=== PATIENT | male | born 1990 | race Caucasian/White ===

== ENCOUNTER 2020-07-02 08:09 | Outpatient (REF) | payer MEDICAID, SELFPAY ==
--- NOTE | ~2020-07-02 | MR_ITS ---
EXAMINATION: MR ANKLE WITHOUT CONTRAST, RIGHT CLINICAL INFORMATION: Right ankle pain. Injury 05/25/2020. Persistent pain and swelling. Popping/clicking. COMPARISON: None TECHNIQUE: Multiplanar MR imaging was obtained through the right ankle without contrast on a 1.5 Corinna magnet. FINDINGS: ACHILLES TENDON: Normal. OTHER TENDONS: There is minimal peroneus brevis tendinosis at the level of the lateral malleolus. No tears. There is also [id number] peroneus longus tendinosis at the level of the anterior process of the calcaneus. No tenosynovitis. Extensor and medial flexor tendons are normal. LIGAMENTS: Anterior talofibular ligament is edematous and ill-defined at its talar attachment, most consistent with a sprain/partial tear. The calcaneofibular ligament is also edematous and thickened, consistent with a sprain. Posterior talofibular ligament is intact. The distal tibiofibular ligaments are normal. The deltoid ligament is edematous and ill-defined at both the deep anterior and deep posterior fibers, most consistent with a sprain/partial tear. Superficial fibers remain intact and are normal in appearance. BONE AND ARTICULAR CARTILAGE: There is marrow edema signal at the medial margin of the talus and at the tip of the medial malleolus, most consistent with osseous contusions or avulsive changes related to the adjacent deltoid ligament injury. No talar osteochondral injuries. Subtalar and talocrural joints appear well preserved. Chopart joint and the remainder of the midfoot are unremarkable. JOINT FLUID AND SOFT TISSUES: Trace ankle joint effusion. There is mild subcutaneous edema signal around the ankle. Of incidental note, there is a prominent origin of the quadratus plantae muscle along the proximal/medial margin of the calcaneal tuberosity. Intrinsic foot musculature is otherwise unremarkable. PLANTAR FASCIA: Normal. SINUS TARSI AND TARSAL TUNNEL: Normal. MR/MR ankle RT wo con IMPRESSION: 1. Sprain/mild partial tear of the anterior talofibular ligament and deep fibers of the deltoid ligament. A more mild sprain of the calcaneofibular ligament. Ankle mortise remains symmetric. 2. Marrow edema signal at the medial margin of the talar dome and at the medial malleolus, to a lesser extent, most likely due to osseous contusions and/or avulsive changes related to the deltoid ligament injury. No discrete fractures. 3. [id number] peroneus longus tendinosis at the level of the anterior process of the calcaneus. More mild minimal peroneus brevis tendinosis. No tears.
== END 2020-07-02 08:10 | disposition home or self-care (01) ==
LOC: HO.MRI 08:09
PROVIDERS: Visit Provider Internal Medicine
DX: M25.571 Pain in right ankle and joints of right foot (principal)
CPT/HCPCS: 73721

== ENCOUNTER 2020-07-15 10:57 | Outpatient (REF) | payer MEDICAID, SELFPAY ==
--- NOTE | ~2020-07-15 | XR_ITS ---
EXAMINATION: XR ANKLE, RIGHT CLINICAL INFORMATION: Pain right ankle and foot COMPARISON: MRI right ankle 07/02/2020 TECHNIQUE: AP, lateral, and mortise views of the right ankle. FINDINGS: There is no fracture, dislocation, or destructive process. No joint narrowing or erosive change. The subtalar joint is unremarkable. Ankle mortise is symmetric. The malleoli are intact. Normal bony mineralization. The retrocalcaneal recess is preserved. There is a borderline posterior calcaneal spur. XR/XR ankle RT min 3V IMPRESSION: Borderline posterior calcaneal spur.
== END 2020-07-15 10:58 | disposition home or self-care (01) ==
LOC: HO.HOSX 10:57
PROVIDERS: Visit Provider Physician Assistant
DX: S93.491A Sprain of other ligament of right ankle, initial encounter (principal)
CPT/HCPCS: 73610

== ENCOUNTER 2020-08-12 08:11 | Outpatient (REF) | payer MEDICAID, SELFPAY ==
--- NOTE | ~2020-08-12 | US_ITS ---
EXAMINATION: US ABDOMEN COMPLETE CLINICAL INFORMATION: Elevated AST/ALT. COMPARISON: None TECHNIQUE: Real-time imaging of the abdominal viscera. FINDINGS: PANCREAS: Normal. ABDOMINAL AORTA: The proximal, mid, and distal segments are normal in caliber. INFERIOR VENA CAVA: Visualized portions are normal. LIVER: Liver echotexture is increased probably representing fatty infiltration. There is a hypoechoic area adjacent to the gallbladder, characteristic location of focal fatty sparing. The liver is normal in size. The liver contour is normal. No focal hepatic lesion. There is no intrahepatic biliary duct dilatation seen. GALLBLADDER: Normal. The gallbladder is physiologically distended without evidence of stones, sludge, polyps, wall thickening or pericholecystic fluid. COMMON BILE DUCT: Normal in caliber measuring 0.4 cm in diameter. RIGHT KIDNEY: Normal. No hydronephrosis. No renal calculi or focal parenchymal lesions. The kidney measures 11.7 cm in maximum dimension. LEFT KIDNEY: Normal. No hydronephrosis. No renal calculi or focal parenchymal lesions. The kidney measures 11.9 cm in maximum dimension. SPLEEN: Normal. The spleen measures 11.6 cm in maximum dimension. FREE FLUID: None. US/US abdomen complete IMPRESSION: Fatty liver otherwise unremarkable exam.
== END 2020-08-12 08:12 | disposition home or self-care (01) ==
LOC: HO.US 08:11
PROVIDERS: PCP Internal Medicine; Visit Provider Internal Medicine
DX: R74.01 Elevation of levels of liver transaminase levels (principal); R79.89 Other specified abnormal findings of blood chemistry
CPT/HCPCS: 76700

== ENCOUNTER → 2020-08-18 08:51 | Outpatient (BNVA) | payer MEDICAID, SELFPAY | PROVIDERS: PCP Internal Medicine; Visit Provider Internal Medicine Gastroenterology | DX: R79.89 Other specified abnormal findings of blood chemistry (principal); R63.5 Abnormal weight gain; R53.83 Other fatigue | CPT/HCPCS: 99202 ==

== ENCOUNTER 2020-08-19 08:15 | Outpatient (REF) | payer MEDICAID, SELFPAY ==
[2020-08-19 09:03] LABS: MANUAL DIFF FLAG NO
[2020-08-19 09:06] LABS: Basophils Percent Auto 0.2 % (0-2); Eosinophils Percent Auto 0.6 % (0-4); Hematocrit 41.4 % (42-52); Hemoglobin 14.2 g/dl (14.0-18.0); Imm Gran Abs Auto 0.03 X10*3/uL (0.00-0.03); Imm Gran Pct Auto 0.5 % (0.0-0.4); Lymphocytes Absolute Auto 2.9 X10*3/uL (1.2-4.9); Lymphocytes Percent Auto 44.6 % (20-40); Mean Corpuscular HGB Conc 34.3 g/dl (31.0-36.0); Mean Corpuscular Hemoglobin 35.4 pg (27.0-33.0); Mean Corpuscular Volume 103.2 fL (80-98); Mean Platelet Volume 12.5 fL (9.4-12.4); Monocytes Absolute Auto 0.6 X10*3/uL (0.1-1.2); Monocytes Percent Auto 8.5 % (2-11); Neutrophils Percent Auto 45.6 % (45-73); Red Blood Count 4.01 X10*6/uL (4.60-5.80); Red Cell Distribution Width 13.1 % (11.0-16.0); White Blood Count 6.6 X10*3/uL (4.8-10.8)
[2020-08-19 09:09] LABS: Platelet Count 97 X10*3/uL (160-400)
[2020-08-19 09:18] LABS: INTERNATIONAL NORM RATIO 1.1 (0.9-1.1); Prothrombin Time 12.6 SEC (10.8-13.0)
[2020-08-19 09:46] LABS: Alanine Aminotransferase 202 U/L (0-40); Albumin Level 4.6 g/dL (3.5-5.0); Alkaline Phosphatase 93 U/L (39-117); Anion Gap 13 (12-20); Aspartate Amino Transferase 101 U/L (5-37); Blood Urea Nitrogen 18 mg/dL (9-16); Calcium 9.5 mg/dL (8.4-10.2); Carbon Dioxide 26 mmol/L (22-29); Chloride 105 mmol/L (96-108); Estimated Glomerular Filt Rate > 60; Gamma Glutamyl Transpeptidase 109 U/L (11-51); Glucose Fasting 103 mg/dL (60-99); Potassium 4.4 mmol/L (3.3-5.1); Rheumatoid Factor < 15.0 IU/mL (<15.0); Sodium 140 mmol/L (135-145); Total Protein 7.6 g/dL (6.5-8.0)
[2020-08-19 09:51] LABS: TSH reflex Free T4 1.61 uIU/mL (0.32-4.0); Vitamin D 25-OH Total 36.8 ng/mL (>30)
[2020-08-19 09:58] LABS: Erythrocyte Sedimentation Rate 13 MM/HR (0-15)
[2020-08-19 10:28] LABS: Folate 15.3 ng/mL (> or = 4.0); Vitamin B12 598 pg/mL (200-900)
== END 2020-08-19 08:16 | disposition home or self-care (01) ==
LOC: HO.LAB 08:15
PROVIDERS: PCP Internal Medicine; Visit Provider Internal Medicine Gastroenterology
DX: R53.83 Other fatigue (principal); R79.89 Other specified abnormal findings of blood chemistry; R63.5 Abnormal weight gain
CPT/HCPCS: 36415; 80053; 81256; 82306; 82550; 82607; 82746; 82977; 84443; 85025; 85610; 85652; 86140; 86431

== ENCOUNTER 2020-09-01 06:28 | Outpatient (REF) | payer MEDICAID, SELFPAY ==
[2020-09-01 07:46] LABS: Immature Retic Fraction 19.1 % (2.3-13.4); Retic HGB Equivalent 38.7 pg (30.0-35.0); Reticulocyte Percent 2.5 % (0.5-1.8); Reticulocytes Absolute 0.092 X10*6/uL (0.026-0.095)
[2020-09-01 08:08] LABS: Alanine Aminotransferase 164 U/L (0-40); Albumin Level 4.5 g/dL (3.5-5.0); Alkaline Phosphatase 83 U/L (39-117); Aspartate Amino Transferase 81 U/L (5-37); Bilirubin Direct 0.6 mg/dL (0.0-0.5); Bilirubin Total 1.8 mg/dL (0.0-1.0); Lactate Dehydrogenase 281 U/L (118-273); Total Protein 7.3 g/dL (6.5-8.0)
[2020-09-01 08:09] LABS: INTERNATIONAL NORM RATIO 1.1 (0.9-1.1); Prothrombin Time 12.5 SEC (10.8-13.0)
[2020-09-01 08:36] LABS: Ferritin 1307 ng/mL (20-250)
[2020-09-03 14:12] LABS: Alpha 1 Anti-trypsin 132 mg/dL (83-199); Ceruloplasmin 23 mg/dL (18-36)
[2020-09-03 18:16] LABS: Prot Elec - Albumin 4.5 g/dL (3.8-4.8); Prot Elec - Alpha1 0.3 g/dL (0.2-0.3); Prot Elec - Alpha2 0.6 g/dL (0.5-0.9); Prot Elec - Beta 1 0.5 g/dL (0.4-0.6); Prot Elec - Beta 2 0.4 g/dL (0.2-0.5); Prot Elec - Gamma 1.2 g/dL (0.8-1.7); Prot Elec - Total Protein 7.3 g/dL (6.1-8.1)
[2020-09-03 23:12] LABS: FIB-ALT 144 U/L (9-46); FIB-Alpha-2-Macroglobulin 186 mg/dL (106-279); FIB-Apolipoprotein A1 128 mg/dL (94-176); FIB-GGT 79 U/L (3-90); FIB-Haptoglobin 30 mg/dL (43-212); FIB-Total Bilirubin 1.5 mg/dL (0.2-1.2); Liver Fibrosis Stage F3; Nec Inflam Act Grade A3; Nec Inflam Act Score 0.79
[2020-09-04 13:32] LABS: Anti Nuclear Antibody Screen NEGATIVE (NEGATIVE)
[2020-09-04 15:06] LABS: Copper, serum 79 mcg/dL (70-175)
[2020-09-09 11:57] LABS: Smooth Muscle Antibody 20 U (<20)
== END 2020-09-01 06:29 | disposition home or self-care (01) ==
LOC: HO.LAB 06:28
PROVIDERS: PCP Internal Medicine; Visit Provider Internal Medicine Gastroenterology
DX: R79.89 Other specified abnormal findings of blood chemistry (principal)
CPT/HCPCS: 36415; 80076; 81596; 82103; 82390; 82525; 82728; 83615; 84155; 84165; 85045; 85610; 86038; 86039; 86255; 86880

== ENCOUNTER → 2020-09-04 11:53 | Outpatient (BNVA) | payer MEDICAID, SELFPAY | PROVIDERS: Visit Provider Internal Medicine Gastroenterology ==

== ENCOUNTER → 2020-09-07 08:47 | Outpatient (REF) | payer MEDICAID, SELFPAY ==
--- NOTE | 2020-09-07 08:53 | ECG_ITS ---
Test Reason : ABN BLOOD CHEM STUDY Blood Pressure : / mmHG Vent. Rate : 069 BPM Atrial Rate : 069 BPM P-R Int : 142 ms QRS Dur : 098 ms QT Int : 394 ms P-R-T Axes : 049 066 002 degrees QTc Int : 422 ms Sinus rhythm with sinus arrhythmia with occasional Premature ventricular complexes Cannot rule out Inferior infarct , age undetermined but could be normal variant Borderline ECG No previous ECGs available Referred By: Ashly Ordonez Electronically Signed By:SG CONCEPCION
== END ==
LOC: HO.CARD 08:47
PROVIDERS: PCP Internal Medicine; Visit Provider Internal Medicine Gastroenterology
DX: R79.89 Other specified abnormal findings of blood chemistry (principal)
CPT/HCPCS: 93005

== ENCOUNTER 2020-09-07 09:08 | Outpatient (REF) | payer MEDICAID, SELFPAY ==
[2020-09-09 22:46] LABS: Copper,Urine 24 Hr 11 mcg/24 h (15-60); Total Volume 24 Ur 1100 mL
== END 2020-09-07 09:09 | disposition home or self-care (01) ==
LOC: HO.LAB 09:08
PROVIDERS: Visit Provider Internal Medicine Gastroenterology
DX: R94.5 Abnormal results of liver function studies (principal); R79.89 Other specified abnormal findings of blood chemistry; R53.83 Other fatigue
CPT/HCPCS: 82525

== ENCOUNTER 2020-09-28 07:38 | Day surgery (SDC) | payer MEDICAID, SELFPAY ==
[2020-09-28] VITALS (10 sets, daily range): BP systolic 96–143; BP diastolic 46–78; PULSE 62–80; RESP 16–18; TEMP 36.1; O2SAT 95–99; BMI 38.9
--- NOTE | ~2020-09-28 | US_ITS ---
EXAMINATION: ULTRASOUND-GUIDED LIVER BIOPSY CLINICAL INFORMATION: Rule out mesh. Quantitative iron estimation. COMPARISON: Previous abdominal ultrasound July 2020 TECHNIQUE: Procedure and risks and benefits including bleeding and infection were discussed with the patient and informed consent was obtained. The right upper quadrant was prepped and draped in the usual sterile fashion. The skin and soft tissues were anesthetized with 1% lidocaine plain. Using ultrasound guidance and a coaxial system, access to the right lobe of the liver was obtained. 3 20-gauge core biopsies were obtained. There is no complication. Patient received Versed 2 mg and fentanyl 100 mcg intravenously during the procedure. Total sedation time was 20 minutes. FINDINGS: The liver is echogenic. No hematoma or ascites is seen post liver biopsy. US/US biopsy liver IMPRESSION: Ultrasound-guided liver biopsy.
--- NOTE | ~2020-09-28 | US_ITS ---
EXAMINATION: ULTRASOUND-GUIDED LIVER BIOPSY CLINICAL INFORMATION: Rule out mesh. Quantitative iron estimation. COMPARISON: Previous abdominal ultrasound July 2020 TECHNIQUE: Procedure and risks and benefits including bleeding and infection were discussed with the patient and informed consent was obtained. The right upper quadrant was prepped and draped in the usual sterile fashion. The skin and soft tissues were anesthetized with 1% lidocaine plain. Using ultrasound guidance and a coaxial system, access to the right lobe of the liver was obtained. 3 20-gauge core biopsies were obtained. There is no complication. Patient received Versed 2 mg and fentanyl 100 mcg intravenously during the procedure. Total sedation time was 20 minutes. FINDINGS: The liver is echogenic. No hematoma or ascites is seen post liver biopsy. US/US biopsy liver IMPRESSION: Ultrasound-guided liver biopsy.
[2020-09-28 08:26] LABS: Basophils Percent Auto 0.2 % (0-2); Eosinophils Percent Auto 0.7 % (0-4); MANUAL DIFF FLAG SCAN; Mean Corpuscular Volume 103.2 fL (80-98); Red Cell Distribution Width 13.1 % (11.0-16.0); SCAN SMEAR FLAG 1
[2020-09-28 08:28] LABS: Hematocrit 39.1 % (42-52); Hemoglobin 13.4 g/dl (14.0-18.0); Imm Gran Abs Auto 0.03 X10*3/uL (0.00-0.03); Imm Gran Pct Auto 0.5 % (0.0-0.4); Lymphocytes Absolute Auto 2.3 X10*3/uL (1.2-4.9); Lymphocytes Percent Auto 39.8 % (20-40); Mean Corpuscular HGB Conc 34.3 g/dl (31.0-36.0); Mean Corpuscular Hemoglobin 35.4 pg (27.0-33.0); Monocytes Absolute Auto 0.6 X10*3/uL (0.1-1.2); Monocytes Percent Auto 9.7 % (2-11); Neutrophils Absolute Auto 2.8 X10*3/uL (2.0-8.3); Neutrophils Percent Auto 49.1 % (45-73); PLT CLUMP 1; Red Blood Count 3.79 X10*6/uL (4.60-5.80)
[2020-09-28 08:33] LABS: Prothrombin Time 12.2 SEC (10.8-13.0)
[2020-09-28 08:36] LABS: Partial Thromboplastin Time 32.8 SEC (24.1-38.0)
[2020-09-28 08:45] LABS: PLT ABN DIST 1
[2020-09-28 08:46] LABS: White Blood Count 5.8 X10*3/uL (4.8-10.8)
[2020-09-28 08:55] LABS: Platelet Count 110 X10*3/uL (160-400); SLIDE REVIEW VERIFIED
--- NOTE | 2020-09-28 10:09 | HO.RADPN ---
RADIOLOGY Narrative Narrative: Right lobe liver biopsy performed using coaxial system. 3 20g core biopsies obtained. No complication.
[2020-09-28] MEDS: Lidocaine HCl 1 % MPF 5 ML VIAL SUBCUT (10:26)
== END 2020-09-28 12:14 | disposition home or self-care (01) ==
PROVIDERS: Radiology Diagnostic Radiology; PCP Internal Medicine; Visit Provider Radiology Diagnostic Radiology
DX: K75.81 Nonalcoholic steatohepatitis (NASH) (principal); K74.02 Hepatic fibrosis, advanced fibrosis
CPT/HCPCS: 36415; 47000; 76942; 83540; 85025; 85610; 85730; 88307; 88313; J2250; J3010

== ENCOUNTER 2020-10-08 12:54 | Outpatient (REF) | payer MEDICAID, SELFPAY ==
[2020-10-08 13:16] LABS: MANUAL DIFF FLAG NO
[2020-10-08 13:21] LABS: Basophils Percent Auto 0.1 % (0-2); Eosinophils Percent Auto 0.4 % (0-4); Hemoglobin 13.3 g/dl (14.0-18.0); Imm Gran Abs Auto 0.03 X10*3/uL (0.00-0.03); Imm Gran Pct Auto 0.4 % (0.0-0.4); Lymphocytes Absolute Auto 2.7 X10*3/uL (1.2-4.9); Lymphocytes Percent Auto 38.5 % (20-40); Mean Corpuscular Hemoglobin 35.8 pg (27.0-33.0); Mean Corpuscular Volume 102.4 fL (80-98); Monocytes Absolute Auto 0.7 X10*3/uL (0.1-1.2); Monocytes Percent Auto 10.1 % (2-11); Neutrophils Absolute Auto 3.6 X10*3/uL (2.0-8.3); Neutrophils Percent Auto 50.5 % (45-73); Platelet Count 115 X10*3/uL (160-400); Red Blood Count 3.71 X10*6/uL (4.60-5.80); Red Cell Distribution Width 13.2 % (11.0-16.0); White Blood Count 7.1 X10*3/uL (4.8-10.8)
[2020-10-08 14:56] LABS: Ferritin 1739 ng/mL (20-250)
== END 2020-10-08 12:55 | disposition home or self-care (01) ==
LOC: HO.BBR 12:54
PROVIDERS: Visit Provider Internal Medicine Gastroenterology
DX: R79.89 Other specified abnormal findings of blood chemistry (principal)
CPT/HCPCS: 36415; 82728; 85025; 99195

== ENCOUNTER 2020-10-15 10:56 | Outpatient (REF) | payer MEDICAID, SELFPAY | END 2020-10-15 10:57 | disposition home or self-care (01) | LOC: HO.BBR 10:56 | PROVIDERS: Visit Provider Internal Medicine Gastroenterology | DX: R79.89 Other specified abnormal findings of blood chemistry (principal) | CPT/HCPCS: 85014; 85018; 99195 ==

== ENCOUNTER 2020-10-28 14:59 | Outpatient (REF) | payer MEDICAID, SELFPAY ==
[2020-10-28 15:16] LABS: Basophils Percent Auto 0.1 % (0-2); Hemoglobin 12.7 g/dl (14.0-18.0); Imm Gran Abs Auto 0.03 X10*3/uL (0.00-0.03); Imm Gran Pct Auto 0.4 % (0.0-0.4); MANUAL DIFF FLAG SCAN; Mean Corpuscular Volume 102.8 fL (80-98); SCAN SMEAR FLAG 1
[2020-10-28 15:18] LABS: Eosinophils Percent Auto 0.3 % (0-4); Hematocrit 37.1 % (42-52); Lymphocytes Absolute Auto 2.4 X10*3/uL (1.2-4.9); Lymphocytes Percent Auto 32.3 % (20-40); Mean Corpuscular HGB Conc 34.2 g/dl (31.0-36.0); Mean Corpuscular Hemoglobin 35.2 pg (27.0-33.0); Monocytes Absolute Auto 0.7 X10*3/uL (0.1-1.2); Monocytes Percent Auto 8.9 % (2-11); NRBC Pct Auto 0.3 /100WBC (0.0-0.2); Neutrophils Absolute Auto 4.2 X10*3/uL (2.0-8.3); PLT CLUMP 1; Red Blood Count 3.61 X10*6/uL (4.60-5.80); Red Cell Distribution Width 13.8 % (11.0-16.0)
[2020-10-28 15:24] LABS: PLT ABN DIST 1; White Blood Count 7.3 X10*3/uL (4.8-10.8)
[2020-10-28 16:10] LABS: Ferritin 1154 ng/mL (20-250)
[2020-10-28 16:18] LABS: Platelet Count 112 X10*3/uL (160-400); SLIDE REVIEW VERIFIED
== END 2020-10-28 15:00 | disposition home or self-care (01) ==
LOC: HO.BBR 14:59
PROVIDERS: Visit Provider Internal Medicine Gastroenterology
DX: R79.89 Other specified abnormal findings of blood chemistry (principal)
CPT/HCPCS: 36415; 82728; 85025; 99195

== ENCOUNTER 2020-11-11 14:59 | Outpatient (REF) | payer MEDICAID, SELFPAY ==
[2020-11-11 15:17] LABS: Hematocrit 35.3 % (42-52); Mean Corpuscular Hemoglobin 35.9 pg (27.0-33.0); Mean Corpuscular Volume 105.7 fL (80-98); Platelet Count 106 X10*3/uL (160-400); Red Blood Count 3.34 X10*6/uL (4.60-5.80); Red Cell Distribution Width 13.9 % (11.0-16.0); White Blood Count 7.4 X10*3/uL (4.8-10.8)
[2020-11-11 16:23] LABS: Ferritin 694 ng/mL (20-250)
== END 2020-11-11 15:00 | disposition home or self-care (01) ==
LOC: HO.BBR 14:59
PROVIDERS: Visit Provider Internal Medicine Gastroenterology
DX: R79.89 Other specified abnormal findings of blood chemistry (principal)
CPT/HCPCS: 36415; 82728; 85014; 85018; 85027; 99195

== ENCOUNTER 2020-12-10 14:50 | Outpatient (REF) | payer MEDICAID, SELFPAY ==
[2020-12-10 15:02] LABS: MANUAL DIFF FLAG NO
[2020-12-10 15:05] LABS: Basophils Percent Auto 0.1 % (0-2); Eosinophils Percent Auto 0.3 % (0-4); Hematocrit 37.6 % (42-52); Hemoglobin 12.8 g/dl (14.0-18.0); Imm Gran Abs Auto 0.06 X10*3/uL (0.00-0.03); Imm Gran Pct Auto 0.6 % (0.0-0.4); Lymphocytes Absolute Auto 2.4 X10*3/uL (1.2-4.9); Lymphocytes Percent Auto 24.9 % (20-40); Mean Corpuscular Hemoglobin 35.9 pg (27.0-33.0); Mean Corpuscular Volume 105.3 fL (80-98); Mean Platelet Volume 13.3 fL (9.4-12.4); Monocytes Absolute Auto 0.8 X10*3/uL (0.1-1.2); Monocytes Percent Auto 8.1 % (2-11); Neutrophils Absolute Auto 6.5 X10*3/uL (2.0-8.3); Platelet Count 120 X10*3/uL (160-400); Red Blood Count 3.57 X10*6/uL (4.60-5.80); Red Cell Distribution Width 13.3 % (11.0-16.0); White Blood Count 9.8 X10*3/uL (4.8-10.8)
[2020-12-10 15:59] LABS: Ferritin 719 ng/mL (20-250)
== END 2020-12-10 14:51 | disposition home or self-care (01) ==
LOC: HO.BBR 14:50
PROVIDERS: PCP Internal Medicine; Visit Provider Internal Medicine Gastroenterology
DX: R79.89 Other specified abnormal findings of blood chemistry (principal)
CPT/HCPCS: 36415; 82728; 85025; 99195

== ENCOUNTER → 2020-12-17 09:01 | Outpatient (BNVA) | payer MEDICAID, SELFPAY | PROVIDERS: PCP Internal Medicine; Referring Provider Internal Medicine; Visit Provider Internal Medicine Gastroenterology | DX: K75.81 Nonalcoholic steatohepatitis (NASH) (principal); R79.89 Other specified abnormal findings of blood chemistry; K59.09 Other constipation | CPT/HCPCS: 99212 ==

== ENCOUNTER 2021-01-01 09:27 | Outpatient (REF) | payer MEDICAID, SELFPAY ==
[2021-01-01 09:49] LABS: Hematocrit 36.2 % (42-52); Hemoglobin 12.2 g/dl (14.0-18.0); Mean Corpuscular HGB Conc 33.7 g/dl (31.0-36.0); Mean Corpuscular Hemoglobin 35.5 pg (27.0-33.0); Mean Corpuscular Volume 105.2 fL (80-98); Platelet Count 105 X10*3/uL (160-400); Red Blood Count 3.44 X10*6/uL (4.60-5.80); Red Cell Distribution Width 13.5 % (11.0-16.0); White Blood Count 5.2 X10*3/uL (4.8-10.8)
[2021-01-01 11:12] LABS: Ferritin 386 ng/mL (20-250)
== END 2021-01-01 09:28 | disposition home or self-care (01) ==
LOC: HO.BBR 09:27
PROVIDERS: Visit Provider Internal Medicine Gastroenterology
DX: R79.89 Other specified abnormal findings of blood chemistry (principal)
CPT/HCPCS: 36415; 82728; 85018; 85027; 99195

== ENCOUNTER 2021-01-06 14:15 | Outpatient (REF) | payer MEDICAID, SELFPAY | END 2021-01-06 14:16 | disposition home or self-care (01) | LOC: HO.BBR 14:15 | PROVIDERS: PCP Internal Medicine; Visit Provider Internal Medicine Gastroenterology | DX: R79.89 Other specified abnormal findings of blood chemistry (principal) | CPT/HCPCS: 85018; 99195 ==

== ENCOUNTER 2021-01-13 13:46 | Outpatient (REF) | payer MEDICAID, SELFPAY ==
[2021-01-13 15:19] LABS: MANUAL DIFF FLAG NO
[2021-01-13 15:24] LABS: Basophils Percent Auto 0.1 % (0-2); Eosinophils Percent Auto 0.5 % (0-4); Hematocrit 35.5 % (42-52); Imm Gran Abs Auto 0.04 X10*3/uL (0.00-0.03); Imm Gran Pct Auto 0.5 % (0.0-0.4); Lymphocytes Absolute Auto 2.5 X10*3/uL (1.2-4.9); Lymphocytes Percent Auto 34.9 % (20-40); Mean Corpuscular HGB Conc 33.8 g/dl (31.0-36.0); Mean Corpuscular Hemoglobin 35.3 pg (27.0-33.0); Mean Corpuscular Volume 104.4 fL (80-98); Mean Platelet Volume 12.6 fL (9.4-12.4); Monocytes Absolute Auto 0.7 X10*3/uL (0.1-1.2); Monocytes Percent Auto 9.3 % (2-11); Neutrophils Percent Auto 54.7 % (45-73); Red Cell Distribution Width 13.4 % (11.0-16.0); White Blood Count 7.3 X10*3/uL (4.8-10.8)
[2021-01-13 15:25] LABS: Platelet Count 95 X10*3/uL (160-400)
[2021-01-13 15:30] LABS: Glucose Urine UA NEG (NEG); Leukocyte Esterase Urine NEG (NEG); Nitrite Urine NEG (NEG); Specific Gravity - Urine >= 1.030 (1.005-1.025); Urine Blood NEG (NEG); Urine Ketones NEG (NEG); Urine Protein NEG (NEG-TRACE)
[2021-01-13 15:32] LABS: Appearance Urine CLEAR; Color Urine YELLOW
[2021-01-13 16:03] LABS: RBC Urine 0 /HPF (0); Squamous Epithelial Cell Urine 1+ /LPF; WBC Urine 0 /HPF (0-4)
[2021-01-13 16:04] LABS: Erythrocyte Sedimentation Rate 21 MM/HR (0-15)
[2021-01-13 16:14] LABS: Thyroid Stimulating Hormone 1.95 uIU/mL (0.32-4.0)
[2021-01-13 16:21] LABS: Folate 16.1 ng/mL (> or = 4.0); Vitamin B12 572 pg/mL (200-900)
[2021-01-13 16:23] LABS: Alanine Aminotransferase 172 U/L (0-40); Albumin Level 4.4 g/dL (3.5-5.0); Alkaline Phosphatase 83 U/L (39-117); Anion Gap 11 (12-20); Aspartate Amino Transferase 111 U/L (5-37); Bilirubin Direct 0.4 mg/dL (0.0-0.5); Bilirubin Total 1.6 mg/dL (0.0-1.0); Blood Urea Nitrogen 16 mg/dL (9-16); C Reactive Protein 0.23 mg/dL (< or = 0.50); Calcium 9.5 mg/dL (8.4-10.2); Carbon Dioxide 26 mmol/L (22-29); Chloride 106 mmol/L (96-108); Estimated Glomerular Filt Rate > 60; Glucose Random 101 mg/dL (60-115); Potassium 4.1 mmol/L (3.3-5.1); Rheumatoid Factor < 15.0 IU/mL (<15.0); Sodium 139 mmol/L (135-145); Total Protein 7.3 g/dL (6.5-8.0)
[2021-01-14 11:47] LABS: Lyme Abs Screen <0.90 index
[2021-01-14 11:55] LABS: Antibody to SS-A Antigen <1.0 NEG AI (<1.0 NEG); Antibody to SS-B Antigen <1.0 NEG AI (<1.0 NEG)
[2021-01-15 22:56] LABS: Anti Nuclear Antibody Screen POSITIVE (NEGATIVE)
[2021-01-15 23:06] LABS: ANA Pattern 2 Mitotic, Centrosome; ANA Titer 2 1:40 titer; Anti Nuclear Antibody Pattern Nuclear, Homogeneous; Anti Nuclear Antibody Titer 1:40 titer
[2021-01-17 00:17] LABS: Zinc 59 mcg/dL (60-130)
[2021-01-18 13:17] LABS: Vitamin D 25-OH, D2 <4 ng/mL; Vitamin D 25-OH, D3 40 ng/mL; Vitamin D 25-OH, Total 40 ng/mL (30-100)
[2021-01-19 05:07] LABS: Aldolase 16.5 U/L (<=8.1)
[2021-01-19 16:28] LABS: Cyclic Citrullinated Peptide <16 UNITS
== END 2021-01-13 13:47 | disposition home or self-care (01) ==
LOC: HO.LAB 13:46
PROVIDERS: Internal Medicine Gastroenterology; PCP Internal Medicine; Visit Provider Student in an Organized Health Care Education/Training Program
DX: Z01.84 Encounter for antibody response examination (principal); R53.83 Other fatigue; R52 Pain, unspecified; R79.89 Other specified abnormal findings of blood chemistry
CPT/HCPCS: 36415; 80053; 81001; 82085; 82248; 82306; 82550; 82607; 82746; 84443; 84630; 85025; 85652; 86038; 86039; 86140; 86200; 86235; 86431; 86617; 86618; 99202

== ENCOUNTER 2021-01-19 14:40 | Outpatient (REF) | payer MEDICAID, SELFPAY ==
[2021-01-19 15:22] LABS: MANUAL DIFF FLAG NO
[2021-01-19 15:32] LABS: Basophils Percent Auto 0.1 % (0-2); Eosinophils Percent Auto 0.4 % (0-4); Hematocrit 36.7 % (42-52); Hemoglobin 12.6 g/dl (14.0-18.0); Imm Gran Abs Auto 0.04 X10*3/uL (0.00-0.03); Imm Gran Pct Auto 0.5 % (0.0-0.4); Lymphocytes Percent Auto 39.1 % (20-40); Mean Corpuscular HGB Conc 34.3 g/dl (31.0-36.0); Mean Corpuscular Hemoglobin 35.8 pg (27.0-33.0); Mean Corpuscular Volume 104.3 fL (80-98); Mean Platelet Volume 13.8 fL (9.4-12.4); Monocytes Absolute Auto 0.7 X10*3/uL (0.1-1.2); Monocytes Percent Auto 9.2 % (2-11); NRBC Pct Auto 0.3 /100WBC (0.0-0.2); Neutrophils Absolute Auto 3.9 X10*3/uL (2.0-8.3); Neutrophils Percent Auto 50.7 % (45-73); Platelet Count 114 X10*3/uL (160-400); Red Blood Count 3.52 X10*6/uL (4.60-5.80); Red Cell Distribution Width 13.6 % (11.0-16.0); White Blood Count 7.7 X10*3/uL (4.8-10.8)
[2021-01-19 15:45] LABS: Anion Gap 15 (12-20); Blood Urea Nitrogen 13 mg/dL (9-16); Calcium 9.8 mg/dL (8.4-10.2); Carbon Dioxide 24 mmol/L (22-29); Chloride 106 mmol/L (96-108); Estimated Glomerular Filt Rate > 60; Glucose Random 84 mg/dL (60-115); Potassium 3.9 mmol/L (3.3-5.1); Sodium 141 mmol/L (135-145)
[2021-01-19 16:08] LABS: Vitamin D 25-OH Total 40.8 ng/mL (>30)
[2021-02-07 13:57] LABS: EJ Autoantibodies NOT DETECTED (NOT DETECTED); JO-1 Antibody <1.0 NEG AI (<1.0 NEG); MI 2 Autoantibodies NOT DETECTED (NOT DETECTED); OJ Autoantibodies NOT DETECTED (NOT DETECTED); PL 12 Autoantibodies NOT DETECTED (NOT DETECTED); PL 7 Autoantibodies NOT DETECTED (NOT DETECTED)
== END 2021-01-19 14:41 | disposition home or self-care (01) ==
LOC: HO.LAB 14:40
PROVIDERS: Internal Medicine Gastroenterology; PCP Internal Medicine; Visit Provider Student in an Organized Health Care Education/Training Program
DX: R74.8 Abnormal levels of other serum enzymes (principal); R53.83 Other fatigue; R79.89 Other specified abnormal findings of blood chemistry
CPT/HCPCS: 36415; 80048; 82306; 85025

== ENCOUNTER 2021-01-27 14:34 | Outpatient (REF) | payer MEDICAID, SELFPAY ==
[2021-01-27 15:09] LABS: Hemoglobin 12.1 g/dl (14.0-18.0); Mean Corpuscular Volume 103.3 fL (80-98); Red Cell Distribution Width 13.4 % (11.0-16.0)
[2021-01-27 15:10] LABS: Hematocrit 34.9 % (42-52); Mean Corpuscular HGB Conc 34.7 g/dl (31.0-36.0); Mean Corpuscular Hemoglobin 35.8 pg (27.0-33.0); Platelet Count 107 X10*3/uL (160-400); Red Blood Count 3.38 X10*6/uL (4.60-5.80); White Blood Count 6.6 X10*3/uL (4.8-10.8)
[2021-01-27 15:12] LABS: PLT ABN DIST 1
[2021-01-27 16:03] LABS: Ferritin 152 ng/mL (20-250)
== END 2021-01-27 14:35 | disposition home or self-care (01) ==
LOC: HO.BBR 14:34
PROVIDERS: Absent Provider Student in an Organized Health Care Education/Training Program; PCP Internal Medicine; Visit Provider Internal Medicine Gastroenterology
DX: R79.89 Other specified abnormal findings of blood chemistry (principal)
CPT/HCPCS: 36415; 82728; 85014; 85018; 85027; 99195

== ENCOUNTER 2021-01-28 08:27 | Outpatient (REF) | payer MEDICAID, SELFPAY ==
[2021-01-28 09:08] LABS: Blood Urea Nitrogen 11 mg/dL (9-16); Estimated Glomerular Filt Rate > 60
[2021-01-29 09:12] LABS: Thyroglobulin Antibodies <1 IU/mL (< or = 1); Thyroid Peroxidase Antibodies 1 IU/mL (<9)
[2021-01-29 12:21] LABS: Anti DNA DS Antibody <1 IU/mL; SM/Ribonucleoprotein Ab <1.0 NEG AI (<1.0 NEG); Smith Protein <1.0 NEG AI (<1.0 NEG)
[2021-01-29 13:01] LABS: Complement C3 78 mg/dL (82-185)
== END 2021-01-28 08:28 | disposition home or self-care (01) ==
LOC: HO.LAB 08:27
PROVIDERS: Absent Provider Internal Medicine Gastroenterology; PCP Internal Medicine; Visit Provider Student in an Organized Health Care Education/Training Program
DX: R74.8 Abnormal levels of other serum enzymes (principal); R53.83 Other fatigue
CPT/HCPCS: 36415; 82565; 84520; 86160; 86225; 86235; 86376; 86800

== ENCOUNTER → 2021-02-02 07:55 | Outpatient (BNVA) | payer MEDICAID, SELFPAY | PROVIDERS: PCP Internal Medicine; Visit Provider Student in an Organized Health Care Education/Training Program | DX: R74.8 Abnormal levels of other serum enzymes (principal) ==

== ENCOUNTER 2021-02-17 14:00 | Outpatient (REF) | payer MEDICAID, SELFPAY ==
[2021-02-17 14:15] LABS: Basophils Percent Auto 0.2 % (0-2); Eosinophils Percent Auto 0.5 % (0-4); MANUAL DIFF FLAG SCAN; Red Cell Distribution Width 13.2 % (11.0-16.0); SCAN SMEAR FLAG 1
[2021-02-17 14:17] LABS: Hematocrit 35.2 % (42-52); Hemoglobin 11.7 g/dl (14.0-18.0); Imm Gran Abs Auto 0.02 X10*3/uL (0.00-0.03); Imm Gran Pct Auto 0.3 % (0.0-0.4); Lymphocytes Absolute Auto 2.3 X10*3/uL (1.2-4.9); Lymphocytes Percent Auto 36.4 % (20-40); Mean Corpuscular HGB Conc 33.2 g/dl (31.0-36.0); Mean Corpuscular Hemoglobin 34.2 pg (27.0-33.0); Mean Corpuscular Volume 102.9 fL (80-98); Monocytes Absolute Auto 0.7 X10*3/uL (0.1-1.2); Monocytes Percent Auto 11.4 % (2-11); Neutrophils Absolute Auto 3.3 X10*3/uL (2.0-8.3); Neutrophils Percent Auto 51.2 % (45-73); Red Blood Count 3.42 X10*6/uL (4.60-5.80); White Blood Count 6.4 X10*3/uL (4.8-10.8)
[2021-02-17 14:19] LABS: PLT ABN DIST 1
[2021-02-17 15:10] LABS: Ferritin 68 ng/mL (20-250)
[2021-02-17 15:21] LABS: SLIDE REVIEW VERIFIED
== END 2021-02-17 14:01 | disposition home or self-care (01) ==
LOC: HO.BBR 14:00
PROVIDERS: PCP Internal Medicine; Visit Provider Internal Medicine Gastroenterology
DX: R79.89 Other specified abnormal findings of blood chemistry (principal)
CPT/HCPCS: 36415; 82728; 85025

== ENCOUNTER 2021-03-19 08:04 | Outpatient (REF) | payer MEDICAID, SELFPAY ==
[2021-03-19 08:24] LABS: Hematocrit 37.4 % (42-52); Hemoglobin 12.6 g/dl (14.0-18.0); Mean Corpuscular HGB Conc 33.7 g/dl (31.0-36.0); Mean Corpuscular Hemoglobin 34.1 pg (27.0-33.0); Mean Corpuscular Volume 101.1 fL (80-98); Platelet Count 100 X10*3/uL (160-400); Red Cell Distribution Width 13.2 % (11.0-16.0); White Blood Count 4.9 X10*3/uL (4.8-10.8)
[2021-03-19 09:43] LABS: Ferritin 78 ng/mL (20-250)
== END 2021-03-19 08:05 | disposition home or self-care (01) ==
LOC: HO.BBR 08:04
PROVIDERS: PCP Internal Medicine; Visit Provider Internal Medicine Gastroenterology
DX: R79.89 Other specified abnormal findings of blood chemistry (principal)
CPT/HCPCS: 36415; 82728; 85027; 99195

== ENCOUNTER 2021-04-09 09:55 | Outpatient (REF) | payer MEDICAID, SELFPAY ==
[2021-04-09 10:12] LABS: Hemoglobin 11.8 g/dl (14.0-18.0); Imm Gran Abs Auto 0.01 X10*3/uL (0.00-0.03); Imm Gran Pct Auto 0.2 % (0.0-0.4)
[2021-04-09 10:14] LABS: Eosinophils Percent Auto 0.6 % (0-4); Hematocrit 35.5 % (42.0-52.0); Lymphocytes Absolute Auto 1.9 X10*3/uL (1.2-4.9); Mean Corpuscular HGB Conc 33.2 g/dl (31.0-36.0); Mean Corpuscular Hemoglobin 33.5 pg (27.0-33.0); Mean Corpuscular Volume 100.9 fL (80.0-98.0); Monocytes Absolute Auto 0.7 X10*3/uL (0.1-1.2); Monocytes Percent Auto 12.6 % (2-11); Neutrophils Absolute Auto 2.6 x10*3/uL (2.0-8.3); Neutrophils Percent Auto 49.6 % (45-73); Platelet Count 104 X10*3/uL (160-400); Red Blood Count 3.52 X10*6/uL (4.60-5.80); Red Cell Distribution Width 13.6 % (11.0-16.0); White Blood Count 5.2 X10*3/uL (4.8-10.8)
[2021-04-09 10:15] LABS: MANUAL DIFF FLAG NO
[2021-04-09 11:03] LABS: Ferritin 67 ng/mL (20-250)
== END 2021-04-09 09:56 | disposition home or self-care (01) ==
LOC: HO.BBR 09:55
PROVIDERS: PCP Internal Medicine; Visit Provider Internal Medicine Gastroenterology
DX: R79.89 Other specified abnormal findings of blood chemistry (principal)
CPT/HCPCS: 36415; 82728; 85025

== ENCOUNTER 2021-05-24 09:55 | Outpatient (REF) | payer MEDICAID, SELFPAY ==
[2021-05-24 10:14] LABS: Hematocrit 38.3 % (42.0-52.0); Monocytes Absolute Auto 0.6 X10*3/uL (0.1-1.2); Monocytes Percent Auto 9.7 % (2-11); Red Cell Distribution Width 13.8 % (11.0-16.0); SCAN SMEAR FLAG 1
[2021-05-24 10:16] LABS: Basophils Percent Auto 0.2 % (0-2); Eosinophils Percent Auto 0.2 % (0-4); Imm Gran Abs Auto 0.04 X10*3/uL (0.00-0.03); Imm Gran Pct Auto 0.6 % (0.0-0.4); Lymphocytes Absolute Auto 2.1 X10*3/uL (1.2-4.9); Lymphocytes Percent Auto 32.5 % (20-40); MANUAL DIFF FLAG SCAN; Mean Corpuscular HGB Conc 33.9 g/dl (31.0-36.0); Mean Corpuscular Hemoglobin 33.2 pg (27.0-33.0); Mean Corpuscular Volume 97.7 fL (80.0-98.0); Neutrophils Absolute Auto 3.6 x10*3/uL (2.0-8.3); Neutrophils Percent Auto 56.8 % (45-73); PLT CLUMP 1; Red Blood Count 3.92 X10*6/uL (4.60-5.80)
[2021-05-24 10:18] LABS: PLT ABN DIST 1
[2021-05-24 10:57] LABS: Platelet Count 84 X10*3/uL (160-400); White Blood Count 6.3 X10*3/uL (4.8-10.8)
[2021-05-24 10:58] LABS: SLIDE REVIEW VERIFIED
[2021-05-24 12:06] LABS: Ferritin 215 ng/mL (20-250)
== END 2021-05-24 09:56 | disposition home or self-care (01) ==
LOC: HO.BBR 09:55
PROVIDERS: PCP Internal Medicine; Visit Provider Internal Medicine Gastroenterology
DX: R79.89 Other specified abnormal findings of blood chemistry (principal)
CPT/HCPCS: 36415; 82728; 85025; 99195

== ENCOUNTER 2021-07-06 10:00 | Outpatient (REF) | payer MEDICAID, SELFPAY ==
[2021-07-06 10:23] LABS: MANUAL DIFF FLAG NO
[2021-07-06 10:28] LABS: Eosinophils Percent Auto 0.3 % (0-4); Hematocrit 36.6 % (42.0-52.0); Hemoglobin 12.3 g/dl (14.0-18.0); Imm Gran Abs Auto 0.02 X10*3/uL (0.00-0.03); Imm Gran Pct Auto 0.3 % (0.0-0.4); Lymphocytes Absolute Auto 1.9 X10*3/uL (1.2-4.9); Lymphocytes Percent Auto 33.4 % (20-40); Mean Corpuscular HGB Conc 33.6 g/dl (31.0-36.0); Mean Corpuscular Hemoglobin 33.2 pg (27.0-33.0); Mean Corpuscular Volume 98.9 fL (80.0-98.0); Monocytes Absolute Auto 0.5 X10*3/uL (0.1-1.2); Monocytes Percent Auto 7.9 % (2-11); Neutrophils Absolute Auto 3.4 x10*3/uL (2.0-8.3); Neutrophils Percent Auto 58.1 % (45-73); Platelet Count 102 X10*3/uL (160-400); Red Cell Distribution Width 14.3 % (11.0-16.0); White Blood Count 5.8 X10*3/uL (4.8-10.8)
[2021-07-06 11:10] LABS: Ferritin 82 ng/mL (20-250)
== END 2021-07-06 10:01 | disposition home or self-care (01) ==
LOC: HO.BBR 10:00
PROVIDERS: Visit Provider Internal Medicine Gastroenterology
DX: R79.89 Other specified abnormal findings of blood chemistry (principal)
CPT/HCPCS: 36415; 82728; 85025; 99195

== ENCOUNTER 2021-08-03 13:55 | Outpatient (REF) | payer MEDICAID, SELFPAY ==
[2021-08-03 14:09] LABS: MANUAL DIFF FLAG NO
[2021-08-03 14:22] LABS: Basophils Percent Auto 0.1 % (0-2); Eosinophils Percent Auto 0.3 % (0-4); Hematocrit 35.9 % (42.0-52.0); Hemoglobin 11.9 g/dl (14.0-18.0); Imm Gran Abs Auto 0.03 X10*3/uL (0.00-0.03); Imm Gran Pct Auto 0.4 % (0.0-0.4); Lymphocytes Absolute Auto 2.1 X10*3/uL (1.2-4.9); Lymphocytes Percent Auto 29.2 % (20-40); Mean Corpuscular HGB Conc 33.1 g/dl (31.0-36.0); Mean Corpuscular Hemoglobin 32.4 pg (27.0-33.0); Mean Corpuscular Volume 97.8 fL (80.0-98.0); Monocytes Absolute Auto 0.8 X10*3/uL (0.1-1.2); Monocytes Percent Auto 10.6 % (2-11); Neutrophils Absolute Auto 4.2 x10*3/uL (2.0-8.3); Neutrophils Percent Auto 59.4 % (45-73); Red Blood Count 3.67 X10*6/uL (4.60-5.80); Red Cell Distribution Width 14.2 % (11.0-16.0); White Blood Count 7.1 X10*3/uL (4.8-10.8)
[2021-08-03 15:06] LABS: Ferritin 47 ng/mL (20-250)
== END 2021-08-03 13:56 | disposition home or self-care (01) ==
LOC: HO.BBR 13:55
PROVIDERS: Visit Provider Internal Medicine Gastroenterology
DX: R79.89 Other specified abnormal findings of blood chemistry (principal)
CPT/HCPCS: 36415; 82728; 85014; 85018; 85025; 99195

== ENCOUNTER 2021-08-30 14:04 | Outpatient (REF) | payer MEDICAID, SELFPAY ==
[2021-08-30 14:25] LABS: Hematocrit 36.5 % (42.0-52.0); Mean Corpuscular HGB Conc 32.9 g/dl (31.0-36.0); Mean Corpuscular Hemoglobin 32.3 pg (27.0-33.0); Mean Corpuscular Volume 98.1 fL (80.0-98.0); Red Blood Count 3.72 X10*6/uL (4.60-5.80); Red Cell Distribution Width 14.5 % (11.0-16.0); White Blood Count 7.7 X10*3/uL (4.8-10.8)
[2021-08-30 15:40] LABS: Ferritin 64 ng/mL (20-250)
== END 2021-08-30 14:05 | disposition home or self-care (01) ==
LOC: HO.BBR 14:04
PROVIDERS: Visit Provider Internal Medicine Gastroenterology
DX: R79.89 Other specified abnormal findings of blood chemistry (principal)
CPT/HCPCS: 36415; 82728; 85018; 85027; 99195

== ENCOUNTER 2021-09-28 14:58 | Outpatient (REF) | payer MEDICAID, SELFPAY ==
[2021-09-28 15:12] LABS: Mean Corpuscular Volume 99.5 fL (80.0-98.0)
[2021-09-28 15:14] LABS: Hematocrit 38.3 % (42.0-52.0); Hemoglobin 12.7 g/dl (14.0-18.0); Mean Corpuscular HGB Conc 33.2 g/dl (31.0-36.0); Platelet Count 110 X10*3/uL (160-400); Red Blood Count 3.85 X10*6/uL (4.60-5.80); Red Cell Distribution Width 14.7 % (11.0-16.0); White Blood Count 6.8 X10*3/uL (4.8-10.8)
[2021-09-28 15:50] LABS: PLT ABN DIST 1
[2021-09-28 16:03] LABS: Ferritin 73 ng/mL (20-250)
== END 2021-09-28 14:59 | disposition home or self-care (01) ==
LOC: HO.BBR 14:58
PROVIDERS: Visit Provider Internal Medicine Gastroenterology
DX: R79.89 Other specified abnormal findings of blood chemistry (principal)
CPT/HCPCS: 36415; 82728; 85018; 85027; 99195

== ENCOUNTER → 2021-10-15 07:48 | Outpatient (BNVA) | payer MEDICAID, SELFPAY | PROVIDERS: PCP Internal Medicine; Referring Provider Internal Medicine; Visit Provider Internal Medicine Gastroenterology | DX: K75.81 Nonalcoholic steatohepatitis (NASH) (principal); K59.09 Other constipation; R79.89 Other specified abnormal findings of blood chemistry; R53.83 Other fatigue; E66.9 Obesity, unspecified; Z68.38 Body mass index [BMI] 38.0-38.9, adult | CPT/HCPCS: 99212 ==

== ENCOUNTER 2021-10-28 15:17 | Outpatient (REF) | payer MEDICAID, SELFPAY ==
[2021-10-28 16:01] LABS: Basophils Percent Auto 0.1 % (0-2); Eosinophils Percent Auto 0.3 % (0-4); Hemoglobin 11.9 g/dl (14.0-18.0); Mean Corpuscular Hemoglobin 33.1 pg (27.0-33.0); Mean Corpuscular Volume 99.4 fL (80.0-98.0); SCAN SMEAR FLAG 1
[2021-10-28 16:03] LABS: Hematocrit 35.7 % (42.0-52.0); Imm Gran Abs Auto 0.05 X10*3/uL (0.00-0.03); Imm Gran Pct Auto 0.7 % (0.0-0.4); Lymphocytes Absolute Auto 1.8 X10*3/uL (1.2-4.9); Lymphocytes Percent Auto 25.9 % (20-40); MANUAL DIFF FLAG SCAN; Mean Corpuscular HGB Conc 33.3 g/dl (31.0-36.0); Monocytes Absolute Auto 0.9 X10*3/uL (0.1-1.2); Monocytes Percent Auto 12.4 % (2-11); Neutrophils Absolute Auto 4.2 x10*3/uL (2.0-8.3); Neutrophils Percent Auto 60.6 % (45-73); Platelet Count 101 X10*3/uL (160-400); Red Blood Count 3.59 X10*6/uL (4.60-5.80); Red Cell Distribution Width 14.9 % (11.0-16.0); White Blood Count 6.9 X10*3/uL (4.8-10.8)
[2021-10-28 16:09] LABS: PLT ABN DIST 1
[2021-10-28 16:19] LABS: SLIDE REVIEW VERIFIED
[2021-10-28 16:20] LABS: Estimated Average Glucose 103 mg/dL; Hemoglobin A1c % 5.2 %
[2021-10-28 16:25] LABS: Alanine Aminotransferase 98 U/L (0-40); Albumin Level 4.2 g/dL (3.5-5.0); Alkaline Phosphatase 82 U/L (39-117); Aspartate Amino Transferase 67 U/L (5-37); Bilirubin Direct 0.4 mg/dL (0.0-0.5); Bilirubin Total 1.2 mg/dL (0.0-1.0); C Reactive Protein 0.14 mg/dL (< or = 0.50); Iron 94 mcg/dL (45-160); Percent Iron Saturation 20 % (15-50); Total Iron Binding Capacity 471 mcg/dL (228-428); Total Protein 7.3 g/dL (6.5-8.0); Unsaturated Iron Binding 377 ug/dL
[2021-10-28 16:40] LABS: Erythrocyte Sedimentation Rate 17 MM/HR (0-15)
[2021-10-28 16:45] LABS: Ferritin 49 ng/mL (20-250); TSH reflex Free T4 1.84 uIU/mL (0.32-4.0)
[2021-11-01 07:06] LABS: Aldolase 10.7 U/L (<=8.1)
[2021-11-01 09:47] LABS: Anti Nuclear Antibody Screen NEGATIVE (NEGATIVE)
== END 2021-10-28 15:18 | disposition home or self-care (01) ==
LOC: HO.BBR 15:17
PROVIDERS: Visit Provider Internal Medicine Gastroenterology
DX: R79.89 Other specified abnormal findings of blood chemistry (principal); K75.81 Nonalcoholic steatohepatitis (NASH); R53.83 Other fatigue
CPT/HCPCS: 36415; 80076; 82085; 82728; 83036; 83540; 84443; 85014; 85018; 85025; 85652; 86038; 86039; 86140; 99195

== ENCOUNTER → 2021-12-02 10:03 | Outpatient (BNVA) | payer MEDICAID, SELFPAY | PROVIDERS: PCP Internal Medicine; Visit Provider Dietitian, Registered | DX: E66.9 Obesity, unspecified (principal); Z68.39 Body mass index [BMI] 39.0-39.9, adult; Z71.3 Dietary counseling and surveillance | CPT/HCPCS: 97802 ==

== ENCOUNTER 2022-03-02 08:58 | Outpatient (REF) | payer MEDICAID, SELFPAY ==
[2022-03-02 09:06] LABS: MANUAL DIFF FLAG NO
[2022-03-02 10:16] LABS: Basophils Percent Auto 0.2 % (0-2); Eosinophils Percent Auto 0.4 % (0-4); Hematocrit 38.4 % (42.0-52.0); Hemoglobin 13.2 g/dl (14.0-18.0); Imm Gran Abs Auto 0.02 X10*3/uL (0.00-0.03); Imm Gran Pct Auto 0.4 % (0.0-0.4); Lymphocytes Absolute Auto 2.1 X10*3/uL (1.2-4.9); Lymphocytes Percent Auto 39.4 % (20-40); Mean Corpuscular HGB Conc 34.4 g/dl (31.0-36.0); Mean Corpuscular Hemoglobin 34.9 pg (27.0-33.0); Mean Corpuscular Volume 101.6 fL (80.0-98.0); Mean Platelet Volume 12.6 fL (9.4-12.4); Monocytes Absolute Auto 0.6 X10*3/uL (0.1-1.2); Monocytes Percent Auto 10.4 % (2-11); Neutrophils Absolute Auto 2.6 x10*3/uL (2.0-8.3); Neutrophils Percent Auto 49.2 % (45-73); Red Blood Count 3.78 X10*6/uL (4.60-5.80); Red Cell Distribution Width 14.6 % (11.0-16.0); White Blood Count 5.4 X10*3/uL (4.8-10.8)
[2022-03-02 10:17] LABS: Platelet Count 87 X10*3/uL (160-400)
[2022-03-02 10:23] LABS: Prothrombin Time 11.7 SEC (10.0-13.1)
[2022-03-02 11:04] LABS: Alanine Aminotransferase 120 U/L (0-40); Albumin Level 4.4 g/dL (3.5-5.0); Alkaline Phosphatase 73 U/L (39-117); Anion Gap 16 (12-20); Aspartate Amino Transferase 75 U/L (5-37); Bilirubin Total 2.2 mg/dL (0.0-1.0); Blood Urea Nitrogen 18 mg/dL (9-16); Calcium 9.3 mg/dL (8.4-10.2); Carbon Dioxide 23 mmol/L (22-29); Chloride 105 mmol/L (96-108); Estimated Glomerular Filt Rate > 60; Glucose Random 89 mg/dL (60-115); Iron 148 mcg/dL (45-160); Percent Iron Saturation 38 % (15-50); Potassium 4.3 mmol/L (3.3-5.1); Sodium 140 mmol/L (135-145); Total Iron Binding Capacity 388 mcg/dL (228-428); Total Protein 7.3 g/dL (6.5-8.0); Unsaturated Iron Binding 240 ug/dL
[2022-03-02 11:24] LABS: Ferritin 198 ng/mL (20-250)
== END 2022-03-02 08:59 | disposition home or self-care (01) ==
LOC: HO.LAB 08:58
PROVIDERS: PCP Internal Medicine; Visit Provider Internal Medicine Gastroenterology
DX: K75.81 Nonalcoholic steatohepatitis (NASH) (principal); R79.89 Other specified abnormal findings of blood chemistry
CPT/HCPCS: 36415; 80053; 82728; 83540; 85025; 85610

== ENCOUNTER → 2022-03-03 07:34 | Outpatient (BNVA) | payer MEDICAID, SELFPAY | PROVIDERS: PCP Internal Medicine; Referring Provider Internal Medicine; Visit Provider Internal Medicine Gastroenterology | DX: R10.31 Right lower quadrant pain (principal); G89.29 Other chronic pain; K75.81 Nonalcoholic steatohepatitis (NASH); R79.89 Other specified abnormal findings of blood chemistry; R53.83 Other fatigue; K59.09 Other constipation | CPT/HCPCS: 99212 ==

== ENCOUNTER 2022-03-08 10:49 | Outpatient (REF) | payer MEDICAID, SELFPAY ==
[2022-03-08 11:20] LABS: Red Cell Distribution Width 14.2 % (11.0-16.0); SCAN SMEAR FLAG 1
[2022-03-08 11:21] LABS: Eosinophils Percent Auto 0.6 % (0-4); Hematocrit 36.4 % (42.0-52.0); Hemoglobin 12.5 g/dl (14.0-18.0); Imm Gran Abs Auto 0.02 X10*3/uL (0.00-0.03); Imm Gran Pct Auto 0.4 % (0.0-0.4); Lymphocytes Absolute Auto 2.1 X10*3/uL (1.2-4.9); Mean Corpuscular HGB Conc 34.3 g/dl (31.0-36.0); Monocytes Absolute Auto 0.5 X10*3/uL (0.1-1.2); Monocytes Percent Auto 8.9 % (2-11); NRBC Pct Auto 0.4 /100WBC (0.0-0.2); Neutrophils Absolute Auto 2.7 x10*3/uL (2.0-8.3); Neutrophils Percent Auto 51.1 % (45-73); Red Blood Count 3.57 X10*6/uL (4.60-5.80); White Blood Count 5.3 X10*3/uL (4.8-10.8)
[2022-03-08 11:22] LABS: PLT ABN DIST 1; Platelet Count 98 X10*3/uL (160-400)
[2022-03-08 11:23] LABS: MANUAL DIFF FLAG NO
[2022-03-08 14:13] LABS: Ferritin 174 ng/mL (20-250)
== END 2022-03-08 10:50 | disposition home or self-care (01) ==
LOC: HO.BBR 10:49
PROVIDERS: Visit Provider Internal Medicine Gastroenterology
DX: R79.89 Other specified abnormal findings of blood chemistry (principal)
CPT/HCPCS: 36415; 82728; 85018; 85025; 99195

== ENCOUNTER 2023-02-07 14:43 | Outpatient (REF) | payer MEDICAID, SELFPAY ==
[2023-02-07 17:40] LABS: Appearance Urine Clear; Color Urine Yellow; Glucose Urine UA Negative (Negative); Leukocyte Esterase Urine Negative (Negative); Nitrite Urine Negative (Negative); PH 5.5 (5.0-9.0); Urine Blood Negative (Negative); Urine Ketones Negative (Negative); Urine Protein Negative (Neg-Trace)
== END 2023-02-07 14:44 | disposition home or self-care (01) ==
LOC: HO.CHCLDS 14:43
PROVIDERS: Visit Provider Internal Medicine
DX: R10.9 Unspecified abdominal pain (principal)
CPT/HCPCS: 81003

== ENCOUNTER 2023-08-28 10:22 | Outpatient (REF) | payer MEDICAID, SELFPAY ==
--- NOTE | ~2023-08-28 | XR_ITS ---
EXAMINATION: XR CHEST CLINICAL INFORMATION: Cough x1 month. COMPARISON: None available. TECHNIQUE: 2 views of the chest were obtained. FINDINGS: The lungs are well expanded. No focal consolidation. No pleural effusion. Cardiac silhouette is within normal limits. XR/XR chest 2V IMPRESSION: No acute abnormality.
== END 2023-08-28 10:23 | disposition home or self-care (01) ==
LOC: HO.HHCX 10:22
PROVIDERS: Visit Provider Emergency Medicine
DX: R68.89 Other general symptoms and signs (principal)
CPT/HCPCS: 71046

== ENCOUNTER → 2024-02-06 10:54 | Outpatient (RCR) | payer MEDICAID, SELFPAY ==
[2021-02-24 14:17] VITALS: BP 132/88; PULSE 76; RESP 14; TEMP 36.8; O2SAT 98; BMI 39.2
[2021-02-24 14:36] LABS: MANUAL DIFF FLAG NO
[2021-02-24 14:44] LABS: Basophils Percent Auto 0.1 % (0-2); Eosinophils Percent Auto 0.3 % (0-4); Hematocrit 38.5 % (42-52); Hemoglobin 12.9 g/dl (14.0-18.0); Imm Gran Abs Auto 0.02 X10*3/uL (0.00-0.03); Imm Gran Pct Auto 0.3 % (0.0-0.4); Lymphocytes Absolute Auto 2.6 X10*3/uL (1.2-4.9); Lymphocytes Percent Auto 34.3 % (20-40); Mean Corpuscular HGB Conc 33.5 g/dl (31.0-36.0); Mean Corpuscular Hemoglobin 34.1 pg (27.0-33.0); Mean Corpuscular Volume 101.9 fL (80-98); Monocytes Absolute Auto 0.8 X10*3/uL (0.1-1.2); Monocytes Percent Auto 10.9 % (2-11); Neutrophils Absolute Auto 4.1 X10*3/uL (2.0-8.3); Neutrophils Percent Auto 54.1 % (45-73); Platelet Count 121 X10*3/uL (160-400); Red Blood Count 3.78 X10*6/uL (4.60-5.80); White Blood Count 7.6 X10*3/uL (4.8-10.8)
--- NOTE | 2021-02-24 15:00 | MHC.HEMONCMA ---
Patient came in for a consult today, states that he is doing well. Clinical summary was reviewed and updated. Patient had labs and will return in 6 months for a follow up.
--- NOTE | 2021-02-24 15:13 | P.CNHO_ITS ---
Subjective - Subjective Chief complaint: Fatigue Patient: new to practice Consult date: 02/24/21 Primary Care Provider: [facility] Medical Summary: Diagnosis: Elevated ferritin, HFE gene analysis negative Started therapeutic phlebotomy in September 2020. Liver biopsy was negative for iron deposition. Ferritin level over 1700 NG/mL in September 2020. HPI - Consult Narrative Reason for consult: Hyperferritinemia Narrative: Karlo Dc is a 31 year old male has been referred for management of hyperferritinemia. He presented to his PCP with complaints of weight gain, fatigue and body aches in spring. Blood work revealed elevated ferritin level and he was referred to Gastroenterology. He was started on therapeutic phlebotomy which seemed to help him initially but now he is feeling more tired. He says he is too tired to exercise and he continues to gain weight. He does not eat much. He does not consume alcohol or smoke cigarettes. He is trying to eat healthy and has cut back red meat. He works full-time and continues to play hockey. He just feels his energy level is not good. He denies any symptoms of depression. He denies any fever or chills. He has not received COVID-19 vaccination.. [facility] Family History: Family History (Last Updated 02/24/21 @ 14:23 by Stephanie Stuart) Father Arthritis Mother Heart murmur Arthritis Sister Arthritis Psoriasis Maternal Grandfather Brain cancer Maternal Aunt Pancreatic cancer Paternal Grandfather Parkinson disease Family/Other AD (Alzheimer's disease) Dementia Surgical History: Surgical History (Last Updated 02/24/21 @ 14:20 by Stephanie Stuart) H/O vasectomy Hx of appendectomy Social History: Social History (Last Updated 02/24/21 @ 14:24 by Stephanie Stuart) Living Situation History: Household Members: Spouse Household Members: Children Housing: House Are you a primary career education teacher to a significant other at home: No Do you presently have visiting nurse or other home services: No Alcohol History: Alcohol intake: former Alcohol History Details: Alcohol intake frequency: does not drink Tobacco History: Patient Tobacco Use Status: Never used Tobacco Substance Use History: Use of substances other than those prescribed or required for medical reasons : No Occupation Assessmet: Current occupational status: employed Current occupation: construction- right handed Home Medications and Allergies Home Medications Medication Instructions Recorded Confirmed Type fexofenadine 60 mg tablet (Ember 60 mg PO DAILY tab 08/18/20 02/24/21 History Allergy) acetaminophen 500 mg tablet 500 mg PO Q6H PRN 02/24/21 02/24/21 History Allergies Allergy/AdvReac Type Severity Reaction Status Date / Time promethazine [From Phenergan] Allergy Severe Anaphylaxis Verified 02/24/21 14:24 Physical Exam Vital signs: Vital Signs Temp 98.2 F 02/24/21 14:17 Pulse 76 02/24/21 14:17 Resp 14 02/24/21 14:17 BP 132/88 02/24/21 14:17 Pulse Ox 98 02/24/21 14:17 Intake & Output 02/23/21 02/24/21 02/24/21 18:59 06:59 18:59 Other: Weight 107.1 kg [place] Weight in Grams 144407 Weight 107.1 kg Hem/Onc Consult Result - Labs CBC & Chem 7: 02/24/21 14:33 Labs: Short CBC 02/24/21 Range/Units 14:33 WBC 7.6 (4.8-10.8) X10*3/uL Hgb 12.9 L (14.0-18.0) g/dl Hct 38.5 L (42-52) % Plt Count 121 L (160-400) X10*3/uL Assessment and Plan Patient Active problem list reviewed?: Yes (1) Elevated ferritin Status: Acute Assessment and plan: 1. This is a pleasant 31-year-old male who was found to have elevated ferritin level during workup for fatigue and weight gain. Blood word in August 2020 revealed a ferritin of 1739 NG/mL. Hemochromatosis gene analysis was negative. Hemoglobin was normal. Abdominal ultrasound revealed fatty liver, liver biopsy performed 09/28/2020 revealed steatohepatitis, stage III fibrosis consistent with UMAÑA. No iron deposition seen. Insufficient tissue to run quantitative iron studies. Patient has been receiving therapeutic phlebotomy twice a month, his ferritin in January dropped to 68 but he became anemic with hemoglobin dropping to 11.7 gram/dL. He has persistent elevated liver enzymes. Patient has been advised to lose weight. 2. Macrocytosis related to liver disease. He denies alcohol consumption. He has normal vitamin B12 and folate levels. 3. 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 Iron studies today show transferrin saturation of 24%. Hemoglobin has improved to 12.9 gram/dL. We can now decrease therapeutic phlebotomy to once every 2 months so he does not become symptomatic from anemia. I thank you for this consultation. Follow-up in 6 months. - Time Spent With Patient Time Spent with Patient (in minutes): 35
[2021-02-24 15:21] LABS: Iron 119 mcg/dL (45-160); Percent Iron Saturation 24 % (15-50); Total Iron Binding Capacity 489 mcg/dL (228-428); Unsaturated Iron Binding 370 ug/dL
--- NOTE | 2021-08-24 15:17 | HE.ONCSEC ---
CALLED PT DUE TO HIS N/S FOR TODAYS APPT. PATIENT DID NOT ANSWER , I LEFT A DETAILED VOICEMAIL INFORMING PT TO CALL BACK TO RESCHEDULE APPT . N/S WILL BE MAILED WELL .
== END | disposition home or self-care (01) ==
LOC: HO.ONC 02-24 14:08
PROVIDERS: Referring Provider Nurse Practitioner Family; Visit Provider Internal Medicine
DX: D64.9 Anemia, unspecified (principal); R94.5 Abnormal results of liver function studies; D75.89 Other specified diseases of blood and blood-forming organs; D69.6 Thrombocytopenia, unspecified
CPT/HCPCS: 36415; 83540; 85025; 99204